=== PATIENT | female | born 1960 | race Caucasian/White ===

== ENCOUNTER 2016-08-12 05:19 | Day surgery (SDC) | payer OTHER ==
[2016-08-11 10:49] LABS: HEMATOCRIT 41.9 % (36.0-48.0); HEMOGLOBIN 13.7 g/dL (12-16); MCH 28.2 pg (26.0-34.0); MCHC 32.7 g/dL (31.0-37.0); MCV 86.2 fL (80.0-100.0); MEAN PLATELET VOLUME 10.2 fL (7.4-10.4); RBC 4.86 10x6/uL (4.00-5.40); RDW 14.3 % (11.5-14.5); WBC 6.9 10x3/uL (4.8-10.8)
[~2016-08-12] VITALS: Ht 152.4 cm; Wt 74.8 kg
--- NOTE | ~2016-08-12 | OP ---
PATIENT NAME: KIMMIE GUADALUPE MEDICAL RECORD: [id number] :58 LOCATION:[facility] ADMISSION DATE: SURGEON: SANTOS BERNARD DPM DATE OF OPERATION: 08/12/2016 PREOPERATIVE DIAGNOSIS: Hallux abductovalgus, left foot. POSTOPERATIVE DIAGNOSIS: Hallux abductovalgus, left foot. PROCEDURE: Len bunionectomy, left foot with 0.062 inch K-wire fixation. ANESTHESIA: Local with IV sedation utilizing lidocaine and Marcaine plain, approximately 15 cc total around the first ray of the left foot. HEMOSTASIS: Left ankle tourniquet at 250 mmHg. PREOPERATIVE DETAILS: The patient was taken to the OR, placed on the operating table in supine position. This was followed by induction of general anesthesia and infiltration of local anesthetic. The left extremity was then prepped and draped in the usual aseptic technique followed by exsanguination of extremity and inflation of tourniquet. A 15 blade was used to create a 4-cm linear incision over the dorsal aspect of the first ray extending to the base of the proximal phalanx of the hallux. The incision was deepened down through subcutaneous tissue to the first MPJ capsule. An inverted L capsulotomy was performed. The medial capsular flap was reflected and the head of the first metatarsal was delivered. A sagittal saw was used to resect the medial eminence. Attention was then directed to the first interspace where a lateral release was performed. Good clinical reduction of the lateral contractures was verified. Attention was then redirected to the medial aspect of the head of the first metatarsal where a sagittal saw was used to create a V osteotomy through and through. The capital fragment was translocated laterally and fixated with a 0.062 inch K-wire. The pin was cut. The medial redundant shelf was resected with a sagittal saw. The wound was flushed. The capsule was repaired with 2-0 Vicryl. The subcutaneous tissue was approximated with 4-0 Rapide and the skin was closed with 4-0 Rapide in a subcuticular technique followed by Dermabond, Adaptic, 4 x 4 and Conform were used to dress the wound followed by a Coban. Tourniquet was deflated. POSTOPERATIVE DETAILS: The patient tolerated the procedure well and left the OR with vital signs stable and vascular status at preop levels. The patient was transported to recovery per anesthesia in stable condition. TRANSINT:[id number] Voice Confirmation ID: [id number] DOCUMENT ID: [id number] SANTOS BERNARD DPM CC: [id number] DICTATION DATE: 08/12/16828 COMMUNICATION EQUIPMENT REPAIRER: 08/12/16 1021 REG [facility] [address] [place] [address]
[2016-08-12 06:14] VITALS: BP 143/63; Ht 152.4 cm; Wt 74.8 kg
== END 2016-08-12 10:10 | disposition home or self-care (01) ==
LOC: D.OPS 05:19 → D.PAN 07:30 → D.OPS 10:10
PROVIDERS: Anesthesiology
DX: M20.12 Hallux valgus (acquired), left foot (principal)

== ENCOUNTER → 2017-03-26 10:52 | Outpatient (CLI) | payer OTHER ==
[2016-08-12 06:14] VITALS: BMI 32.2
== END | disposition home or self-care (01) ==
LOC: D.RAD 10:52
DX: M54.2 Cervicalgia (principal); M54.12 Radiculopathy, cervical region; M25.511 Pain in right shoulder

== ENCOUNTER → 2017-04-06 13:57 | Outpatient (CLI) | payer OTHER ==
[2016-08-12 06:14] VITALS: BMI 32.2
== END | disposition home or self-care (01) ==
LOC: D.RAD 13:57
DX: R91.1 Solitary pulmonary nodule (principal)